=== PATIENT | male | born 2000 | race Caucasian/White ===

== ENCOUNTER 2024-05-16 17:01 | Emergency (ER) | payer BC, SELFPAY ==
[2024-05-16 17:22] VITALS: BP 126/70; PULSE 58; RESP 18; TEMP 37.4; O2SAT 96; BMI 18.1
--- NOTE | 2024-05-16 20:07 | ED.LOWEXIN ---
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 He is a [facility] patient and was in flag football for his gym class. He went to have an abrupt stop and felt a pop in his right calf. He was able to make it over the bench and rest. When he went to get up off that is where he noticed more increased pain. At rest he is not in much pain but if he attempts to bear weight he hurts. He points to the lower portion on the back of his leg below the body of the gastrocnemius but above the Achilles tendon. It is in his right leg. 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 He does have crutches and comes in on those, nonweightbearing on the right leg. Related Data Home Medications ?Medication ?Instructions ?Recorded ?Confirmed No Known Home Medications 05/16/24 05/16/24 Review of Systems Narrative: As per HPI. [facility] Medical History No significant past medical history Surgical History No significant past surgical history Social History Smoking Status: Never smoker Second hand tobacco smoke exposure: No How often do you have a drink containing alcohol: never AUDIT-C Alcohol total score: 0 Non-prescribed substance use: denies use Exam Const: Vital Signs, click to edit/add: Vital Signs - 24 hr 05/16/24 17:22 Temperature 99.3 F Pulse Rate [Pulse Oximeter] 58 L Respiratory Rate 18 Blood Pressure [Ri ght Upper Arm] 126/70 Pulse Oximetry 96 Oxygen Delivery Me thod Room Air This 23-year-old male is seen in exam room for coming is alert, interactive, no apparent distress. On inspection of both of his lower extremities, note no significant swelling, erythema or ecchymosis. He is nontender about his right knee, no popliteal fossa masses, no knee joint swelling or tenderness. The body of his gastrocnemius on the right leg is nontender, I can squeeze the calf. Did get a positive plantar flexion with testing on both of his calves but then could not reproduce on either leg. I did remove the sock in the shoe of the right foot, he has good peripheral pulses, normal light touch sensation of his toes. He does have preserved plantar flexion strength testing, would say he is 5/5. He seems to have an intact Achilles tendon but 2 or so cm above that, possibly 3 cm is where he is feeling the discomfort, difficult to say if there was loss of continuity of the tendinous insertion of the muscle here but that is what I suspect. Documenting provider has reviewed patient's vital signs: yes Course Course ED Course: Reviewed with patient that I have concerns about partial disruption of the potential tendinous insertion of his gastrocnemius. I will talk to Orthopedics and update him once I have spoken with them. We do not do musculoskeletal ultrasound here, tech on-call is not training for this. We did review that outpatient MRI may be ordered through Orthopedics. Reevaluation(s) Time of Reevaluation #1: 21:10 Reevaluation #1: Patient is updated on recommendations by Orthopedics. Nursing is working on getting him a cam walker. Consultations Consultation #1: Did speak with Dieter Beltran from Orthopedics. He agrees that this is concerning for potential ligamentous disruption where the gastric knee medius is going into the tendinous insertion. Certainly not down at the Achilles level on my exam and there is some preserved plantar flexion strength testing. He recommends the cam boot, we do not have 1 with a heel wedge. He can use weight-bearing as tolerated with a cam boot on, patient does have crutches already. He did discuss doing [id number] exercises for the ankle, follow up with them to get MRI imaging. Time: 20:40 Vital Signs Vital signs: Initial Vital Signs Temperature 99.3 F 05/16/24 17:22 Temperature Source Temporal Artery Scan 05/16/24 17:22 Pulse Rate 58 L 05/16/24 17:22 Respiratory Rate 18 05/16/24 17:22 Blood Pressure 126/70 05/16/24 17:22 Blood Pressure Mean 88 05/16/24 17:22 Pulse Oximetry 96 05/16/24 17:22 Oxygen Delivery Method Room Air 05/16/24 17:22 Vital Signs Temperature 99.3 F 05/16/24 17:22 Pulse Rate 58 L 05/16/24 17:22 Respiratory Rate 18 05/16/24 17:22 Blood Pressure 126/70 05/16/24 17:22 Pulse Oximetry 96 05/16/24 17:22 Oxygen Delivery Method Room Air 05/16/24 17:22 Temperature 99.3 F 05/16/24 17:22 Pulse Rate 58 L 05/16/24 17:22 Respiratory Rate 18 05/16/24 17:22 Blood Pressure 126/70 05/16/24 17:22 Pulse Oximetry 96 05/16/24 17:22 Oxygen Delivery Method Room Air 05/16/24 17:22 Discharge Plan Discharge Clinical Impression: Gastrocnemius tendon tear Patient Disposition: Home, Self-Care Condition: Stable Instructions: Tendon Rupture (ED) Additional Instructions: Use cam walker for mobilization with ambulation. Can use crutches as needed. Tylenol and or ibuprofen per bottle directions for any discomfort. You may take the boot off to shower but limit walking, try to walk on your heel if the boot is off, do not want to roll through and press off on the toes like normal walking mechanism as this puts stress on the tendon. Can elevate and take boot off to ice this area if needed. Just make sure that if you doing any ambulation or walking outside of the shower, do need the boot on until further advised by Orthopedics. Need to schedule follow-up with orthopedics, phone number is [phone]. They may need to order MRI of this, they will decide when they see you. Prescriptions: No Action No Known Home Medications Follow Up/Referrals: Provider,Not a Local [Primary Care Provider] - Stand Alone Forms: MyHealth Info Instructions
--- OUTSIDE RECORDS SUMMARY | 2024-05-16 20:31 | XMS_ITS | Continuity of Care Document ---
Author Organization [facility] Address [address] [place] [phone] Phone Care Team Providers Care Briquette Machine Operator Name Role Phone Nurse, Nurse Unavailable Unavailable Procedures Procedure Date IMM ADMN SARSCOV2 100 MCG/0.5 ML 2ND DOS E COVID-19 Moderna 100mcg/0.5mL. Pres Free Vaccine IMM ADMN SARSCOV2 100 MCG/0.5 ML 1ST DOS E COVID-19 Moderna 100mcg/0.5mL. Pres Free Vaccine Advance Directives Directive Yes / No Effective Date File Name No Information Encounters Encounter Description Practice Location Reason(s) For Visit Diagnoses Date Provider Providers Copied on Encounter [facility], [address] [place] [address], [facility], tel:[phone] [facility] No Information Nurse Nurse. [address] [place] [address], [id number] , [place]. [phone] [facility], [address] [place] [address], [facility], tel:[phone] [facility] No Information Nurse Nurse. [address] [place] [address], [id number] , [place]. tel:[phone] Family History Family Member Type Diagnosis Age At Onset No Information Immunizations Vaccine Date Status Comments SARS-COV-2 (COVID-19) vaccin e, mRNA, spike protein, LNP, preservative free, 100 mcg/0.5mL dose (Moderna) administered Source: [facility] Record SARS-COV-2 (COVID-19) vaccin e, mRNA, spike protein, LNP, preservative free, 100 mcg/0.5mL dose (Moderna) administered Source: [facility] Record Payers Payer name Insurance type Covered libertarian ID Authoriza tion(s) [facility] CI [id number] [facility] CI [id number] [facility] [id number] Social History Type Description Quantity Date Captured Comments Sex Male Smoking Status No Information Chief Complaint And Reason For Visit No Information Reason For Referral Reason For Referral No Information History Of Present Illness Encounter Date Complaint History Of Prese nt Illness No Information Functional Status Date Functional Assessmen t No Information Instructions Date Instruction Additional Infor mation No Information Assessments Type Assessment Date No Information Patient Care Teams Name Effective Dates (start - stop) Status Members No Information
[2024-05-16 21:29] VITALS: BP 121/68; PULSE 65; RESP 18; TEMP 37.4; O2SAT 96
[2024-05-16 21:41] VITALS: BP 121/68; PULSE 65; RESP 18; TEMP 37.4
== END 2024-05-16 21:41 | disposition home or self-care (01) ==
PROVIDERS: Emergency Provider Family Medicine
DX: S86.111A Strain of other muscle(s) and tendon(s) of posterior muscle group at lower leg level, right leg, initial encounter (principal); Y93.62 Activity, american flag or touch football
CPT/HCPCS: 99283

== ENCOUNTER 2024-05-24 14:11 | Outpatient (CLI) | payer BC, SELFPAY ==
--- NOTE | 2024-05-24 14:30 | MR_ITS ---
[address] [address] Phone:?[phone] Fax:?[phone] Referring Physician Information: Lamont Cain [address] [facility] [address] Phone:?[phone] Fax:?[phone] Patient:?Anoop Kong D.O.B:?2000 Sex:?Male Phone:?[phone] [facility] MRN:?[id number] Exam Date:?05/24/2024 EXAM: MRI of the RIGHT ACHILLES TENDON, including ANKLE/HINDFOOT, without contrast CLINICAL: Male, 23 years old, with right ankle pain since injury running on 05/16/2024, feeling a pop in the back of his ankle. INDICATION: Evaluate for muscle and tendon strain injury. PRIOR SURGERY: None reported. PLAIN FILMS: None available. COMPARISON: No prior MRIs available. TECHNICAL: Using a 1.5T MR scanner and a localizing surface coil: 3.0 mm?sagittals: PD, T2, STIR 3.0 mm?coronals: PD, T2FS 3.0 mm?axials: PD, T2FS IMPRESSION: 1. Full-thickness full-width tear of the Achilles tendon proximal myotendinous junction at level 9 cm of proximal to its distal calcaneal insertion with less than 1 cm of retraction/gap. 2. Mild to moderate tendinosis of the peroneus longus greater than peroneus brevis tendons and yet without evidence for defined tear or pathologic peroneal tenosynovitis at this time. 3. No other myotendinous abnormalities. 4. No ligament injuries. 5. No tibiotalar or other osteochondral lesions. 6. No bone stress injuries or marrow edema. FINDINGS: Achilles tendon: Ill-defined full-thickness full-width tear of the proximal myotendinous junction of the Achilles tendon located at a level 9 cm proximal to the level of the intact distal calcaneal insertion. Associated mild less than 1 cm area of retraction/gap at the tear site, and mild adjacent soft tissue swelling/edema (sagittal images 15-18; coronal images 25-26). Inferior to this proximal tear, of the proximal to mid aspect of the Achilles tendon appears associated with mild thickening and signal alteration. The distal Achilles tendon and insertion is intact No convincing pathologic retrocalcaneal bursitis. Osseous structures: No demonstrable Dago's deformity. No stress/occult fracture or other marrow edema/pathology. Os trigonum: No os trigonum or abnormally prominent Stieda's process. Tarsal coalition: No calcaneonavicular, talocalcaneal or cubonavicular coalition. Flexor tendons: Posterior tibial: Normal, without tendinopathy, tenosynovitis or tear. Flexor digitorum longus: Normal. Flexor hallucis longus: Normal, without convincing pathologic tenosynovitis. Peroneus brevis: Mild peroneus longus and brevis tendinosis without defined tear. Peroneus longus: More prominent moderate tendinosis/tendinopathy including mild fusiform thickening and ill-defined signal alteration of the peroneus brevis longus tendon centered at the level of the inferior aspect of lateral malleolus, without defined tear (axial PD series 3, images 9-22). No evidence of associated peroneal tenosynovitis at this time. The superior peroneal retinaculum is intact Extensor tendons: Tibialis anterior: Normal, without tendinopathy, tenosynovitis or tear. Extensor hallucis longus: Normal. Extensor digitorum longus: Normal. Plantar aponeurosis: No ongoing plantar fasciopathy or tear. Tibiotalar joint: Effusion: Physiologic. Ganglion cyst: None. Osteochondral surfaces: No osteochondral abnormality. Loose bodies: No demonstrable loose bodies. Subtalar joint: Effusion: Physiologic. Articular cartilage: No osteochondral abnormality. Tarsal joints: Talonavicular: Unremarkable. Calcaneocuboid: Unremarkable. Naviculocuneiform: Unremarkable. Tarsometatarsal: Unremarkable. Lateral ligaments: Anterior talofibular: No sprain, atrophy or anterolateral impingement lesion. Calcaneofibular: No injury. Posterior talofibular: No injury. Medial deltoid ligaments: Deep: Intact posterior tibiotalar ligament. Superficial: Intact tibionavicular, tibiospring and tibiocalcaneal ligaments. Syndesmotic ligaments: Intact anterior and posterior tibiofibular and interosseous ligaments. Hindfoot ligaments: Sinus tarsi: Intact lateral cervical and medial interosseous ligaments. Spring: Intact superomedial, medioplantar oblique and inferoplantar longitudinal ligaments. Bifurcate: Intact lateral calcaneonavicular and medial calcaneocuboid ligaments. Calcaneocuboid: Intact medial, dorsolateral and plantar ligaments. Lisfranc ligament complex: Not well included. Tarsal tunnel: No masses or demonstrable findings of tarsal tunnel syndrome. [facility] Electronically signed on 05/25/2024 11:16:00 AM by Andres Andrea M.D.
== END 2024-05-24 14:12 | disposition home or self-care (01) ==
LOC: MRI 14:12
PROVIDERS: Visit Provider Physician Assistant Surgical
DX: M25.571 Pain in right ankle and joints of right foot (principal); S86.011A Strain of right Achilles tendon, initial encounter
CPT/HCPCS: 73721